=== PATIENT | female | born 1985 | race Caucasian/White ===

== ENCOUNTER 2017-07-11 00:14 | Emergency (ER) | payer OTHER ==
--- NOTE | 2017-07-11 00:40 | NUR ---
"I WAS AT [facility] AND WAS DIAGNOSED WITH SHINGLES AND GIVEN RX. THEY TOLD ME THE MEDICINE IS SAFE DURING BREASTFASTING SO I WILL JUST GO AND TAKE IT INSTEAD OF PAYING ANOTHER BILL HERE"
== END 2017-07-11 00:42 | disposition left against medical advice (07) ==
LOC: ER 00:14
DX: Z53.21 Procedure and treatment not carried out due to patient leaving prior to being seen by health care provider (principal)